=== PATIENT | female | born 1975 | race Caucasian/White ===

== ENCOUNTER 2020-07-20 08:30 | Emergency (ER) | payer OTHER ==
[~2020-07-20] VITALS: Ht 160 cm; Wt 85.3 kg
[2020-07-20 08:43] LABS: URINE BILIRUBIN NEGATIVE (Negative); URINE BLOOD 3+ (Negative); URINE CLARITY CLEAR; URINE COLOR YELLOW; URINE GLUCOSE-RANDOM 3+ (Negative); URINE KETONES NEGATIVE (Negative); URINE LEUKOCYTES-REFLEX NEGATIVE (Negative); URINE NITRITE-REFLEX NEGATIVE (Negative); URINE PROTEIN NEGATIVE (Negative); URINE UROBILINOGEN 0.2 E.U./dl (0.2-1.0)
[2020-07-20] MEDS ORDERED: LIPITOR 20 MG T20 M1 PO (08:45)
[2020-07-20] MEDS ORDERED: JARDIANCE10 MG PO (08:45)
[2020-07-20] MEDS ORDERED: PRINIVIL10 MG PO (08:45)
[2020-07-20] MEDS ORDERED: MONTELUKAST SODI4 M1 PO (08:45)
[2020-07-20] MEDS ORDERED: PROZAC20 M1 PO (08:45)
[2020-07-20] MEDS ORDERED: VITAMIN D-40010 MCG PO (08:46)
[2020-07-20] MEDS ORDERED: OZEMPIC0.25 MG/0. IM (08:46)
[2020-07-20] MEDS ORDERED: ACTOS 30 MG TAB30 MG PO (08:46)
[2020-07-20] MEDS ORDERED: JANUMET 50-1,01 EACH PO (08:47)
[2020-07-20 08:51] LABS: BACTERIA-REFLEX 1-9 Few /HPF (None Seen); CASTS None Seen /LPF (None Seen); CRYSTALS None Seen /LPF (None Seen); MUCUS None Seen strn/LPF (None Seen); SQUAMOUS 0-3 Few /LPF (0-3); URINE WBC-REFLEX 0-5 Rare /HPF (0-5)
[2020-07-20 08:57] LABS: ABSOLUTE BASOPHILS 0.1 thou/uL (0.0-0.2); ABSOLUTE EOSINOPHILS 0.1 thou/uL (0.0-0.7); ABSOLUTE LYMPHOCYTES 1.7 thou/uL (0.8-5.3); ABSOLUTE MONOCYTES 0.4 thou/uL (0.0-1.2); ABSOLUTE NEUTROPHILS 6.1 thou/uL (1.6-8.1); BASOPHILS 0.6 %; EOSINOPHILS 1.4 %; HEMATOCRIT 37.4 % (37.0-47.0); HEMOGLOBIN 12.3 gm/dL (12.0-15.0); LYMPHOCYTES 20.3 %; MCH 28.7 pg (26.0-34.0); MCHC 32.8 g/dL (28.0-37.0); MCV 87.3 fL (80.0-100.0); MONOCYTES 5.1 %; MPV 7.4 fl. (7.2-11.1); NUCLEATED RBCS 0 /100WBC; PLATELET COUNT* 507 thou/uL (150-400); POLYS 72.6 %; RBC 4.29 mil/uL (4.20-5.00); RDW-CV 16.5 % (10.5-14.5); WBC 8.4 thou/uL (4.0-11.0)
[2020-07-20 09:04] LABS: CALCIUM 9.3 mg/dL (8.5-10.1); POTASSIUM 3.5 mmol/L (3.5-5.1)
[2020-07-20 09:09] LABS: ALBUMIN 3.9 g/dL (3.4-5.0); TOTAL BILIRUBIN 0.3 mg/dL (<0.1-1.0); TOTAL PROTEIN 7.9 g/dL (6.4-8.2)
[2020-07-20] MEDS ORDERED: ZOFRAN ODT4 MG SUBLING (09:49)
[2020-07-20] MEDS ORDERED: FLEXERIL PO (09:49)
[2020-07-20] MEDS ORDERED: CIPROFLOXACIN500 M1 PO (09:49)
[2020-07-20] MEDS ORDERED: HYDROCODON-ACE1 EAC7 PO (09:49)
[2020-07-20 09:53] VITALS: BP 96/54
== END 2020-07-20 09:55 | disposition home or self-care (01) ==
LOC: M.ERS 08:30
PROVIDERS: Family Medicine
DX: M54.9 Dorsalgia, unspecified (principal); I10 Essential (primary) hypertension; E78.5 Hyperlipidemia, unspecified; E11.9 Type 2 diabetes mellitus without complications; Z79.899 Other long term (current) drug therapy